=== PATIENT | female | born 1975 | race American Indian/Alaskan Native ===

== ENCOUNTER 2017-12-29 10:00 | Emergency (ER) | payer MEDICAID ==
[2017-12-29 10:43] VITALS: BMI 22.8
--- NOTE | 2017-12-29 11:30 | ED PDOC ---
Upper Extremity Pain/Injury Time Seen by Provider: 12/29/17 10:00 Chief Complaint (Nursing): Upper Extremity Problem/Injury Chief Complaint (Provider): Upper Extremity Problem/Injury History Per: Patient History/Exam Limitations: no limitations Onset/Duration Of Symptoms: Days (x2 weeks) Additional Complaint(s): Aayka Sam is a 42 y/o female with no significant past medical history who presents to the ED with complaints of right hand pain, onset x2 weeks. Patient states that she noticed a knot on the dorsum of her right hand, it gradually began to swell and hurt more and more. She visited a nearby clinic where they did US and x-ray but the pain became too severe prompting ED visit. She denies any other medical problems. PMD: Henri Hauser Past Medical History Reviewed: Historical Data, Nursing Documentation, Vital Signs Vital Signs: Last Vital Signs Temp 98.1 F 12/29/17 10:47 Pulse 70 12/29/17 10:47 Resp 20 12/29/17 10:47 BP 112/74 12/29/17 10:47 Pulse Ox 98 12/29/17 10:47 - Medical History PMH: No Chronic Diseases - Surgical History Surgical History: No Surg Hx - Family History Family History: States: Unknown Family Hx - Home Medications Home Medications: Ambulatory Orders Medication Instructions Recorded Naproxen 500 mg PO Q12 #20 tab 09/13/14 Ibuprofen [Motrin] 600 mg PO Q6 PRN #20 tab 11/07/14 Cyclobenzaprine [Cyclobenzaprine 10 mg PO TID PRN #15 tab 04/25/16 HCl] Ibuprofen [Motrin] 600 mg PO Q6H PRN #20 tab 04/25/16 - Allergies Allergies/Adverse Reactions: Allergies Allergy/AdvReac Type Severity Reaction Status Date / Time No Known Allergies Allergy Verified 05/31/16 16:02 Review of Systems ROS Statement: Except As Marked, All Systems Reviewed And Found Negative Constitutional: Negative for: Fever Musculoskeletal: Positive for: Arm Pain (right hand dorsum) Physical Exam - Reviewed Nursing Documentation Reviewed: Yes Vital Signs Reviewed: Yes - Physical Exam Appears: Positive for: Non-toxic, No Acute Distress Head Exam: Positive for: ATRAUMATIC, NORMOCEPHALIC Skin: Positive for: Normal Color, Warm, Dry Eye Exam: Positive for: EOMI, Normal appearance, PERRL Respiratory: Negative for: Respiratory Distress Extremity: Positive for: Normal ROM (upper and lower; hand and wrist are limited dude to pain), Tenderness (right hand dorsum), Swelling (right hand dorsum), Other (Ganglion cyst to dorsum of right hand. Neurovascularly intact). Negative for: Deformity Neurologic/Psych: Positive for: Alert, Oriented. Negative for: Motor/Sensory Deficits - ECG O2 Sat by Pulse Oximetry: 98 (RA) Pulse Ox Interpretation: Normal Medical Decision Making Medical Decision Making: Time: 11:33 Initial Impression: Large ganglion cyst Initial Plan: --RAD - right hand x3 views --Tylenol 650 mg PO --reevaluation xray appears negative for fracture or dislocation on my view, splint applied for comfort. instructed to follow up with ortho hand Dr Fine. Scribe Attestation: Documented Roberto Ronaldo acting as a scribe for Ronnie Ahmadi MD. Scribe Attestation: All medical record entries made by the Scribe were at my direction and personally dictated by me. I have reviewed the chart and agree that the record accurately reflects my personal performance of the history, physical exam, medical decision making, and the department course for this patient. I have also personally directed, reviewed, and agree with the discharge instructions and disposition. Disposition - Clinical Impression Clinical Impression: Hand pain - Patient ED Disposition Is Patient to be Admitted: No Counseled Patient/Family Regarding: Studies Performed, Diagnosis, Need For Followup - Disposition Referrals: [facility] [Outside] Jovi Fine MD [Medical Doctor] - Disposition: Routine/Home Disposition Time: 12:30 Condition: IMPROVED Additional Instructions: follow up with the hand mgmt specialist in 1-2 days return to the ED with any worsening or concerning symptoms Instructions: Hand Pain (DC) Forms: [employer] (Yi)
[2017-12-29 14:32] VITALS: BP 122/67; PULSE 76; RESP 17; TEMP 98
[2017-12-29 14:34] VITALS: O2SAT 98
--- NOTE | 2017-12-29 14:44 | RAD ---
PROCEDURE: Right Hand Radiographs. HISTORY: r hand pain COMPARISON: None. FINDINGS: BONES: Normal. No fracture. JOINTS: Normal. No osteoarthritic changes. SOFT TISSUES: Normal. OTHER FINDINGS: None. IMPRESSION: Normal right hand radiographs.
== END 2017-12-29 14:30 | disposition home or self-care (01) ==
LOC: H.ER 10:32
DX: M79.641 Pain in right hand (principal)

== ENCOUNTER 2018-10-11 09:30 | Emergency (ER) | payer MEDICAID ==
[2018-10-11 09:40] VITALS: BMI 20.5
--- NOTE | 2018-10-11 10:03 | ED PDOC ---
HPI: Female Pain Time Seen by Provider: 10/11/18 09:38 History Per: Patient Onset/Duration Of Symptoms: Days (3) Current Symptoms Are (Timing): Still Present Severity: Moderate Quality Of Discomfort: Cramping Additional Complaint(s): Vaginal bleeding assoc with clots x 3 days. Has irregular periods. Mild cramping. Seen by learning consultant and advised to go on BCP to regulate periods Abnormal Vaginal Bleeding: Yes Last Menstral Period: 13 days ago Past Medical History Vital Signs: Last Vital Signs Temp 98.5 F 10/11/18 09:37 Pulse 88 10/11/18 09:37 Resp 17 10/11/18 09:37 BP 99/60 L 10/11/18 09:37 Pulse Ox 97 10/11/18 09:37 - Medical History PMH: No Chronic Diseases - Family History Family History: States: Unknown Family Hx - Home Medications Home Medications: Ambulatory Orders Medication Instructions Recorded Naproxen 500 mg PO Q12 #20 tab 09/13/14 Ibuprofen [Motrin] 600 mg PO Q6 PRN #20 tab 11/07/14 Cyclobenzaprine [Cyclobenzaprine 10 mg PO TID PRN #15 tab 04/25/16 HCl] Ibuprofen [Motrin] 600 mg PO Q6H PRN #20 tab 04/25/16 Ferrous Sulfate [Feosol] 325 mg PO DAILY #30 tab 10/11/18 - Allergies Allergies/Adverse Reactions: Allergies Allergy/AdvReac Type Severity Reaction Status Date / Time No Known Allergies Allergy Verified 05/31/16 16:02 Review of Systems Gastrointestinal: Positive for: Abdominal Pain Genitourinary Female: Positive for: Vaginal Bleeding Neurological: Positive for: Dizziness Physical Exam - Physical Exam Appears: Positive for: Non-toxic, No Acute Distress Skin: Positive for: Normal Color, Warm, DRY Gastrointestinal/Abdominal: Positive for: Bowel Sounds, Soft. Negative for: Tenderness Pelvic Exam: Positive for: External Exam Normal, Blood (Mod blood and clots in vault). Negative for: Mass, Tender Adnexa, Tender Uterus - Laboratory Results Result Diagrams: 10/11/18 10:15 10/11/18 10:15 - ECG O2 Sat by Pulse Oximetry: 97 Disposition - Clinical Impression Clinical Impression: Menorrhagia - Patient ED Disposition Is Patient to be Admitted: No Counseled Patient/Family Regarding: Studies Performed, Diagnosis, Need For Followup, Rx Given - Disposition [facility]errals[facility]] Disposition: Routine/Home Disposition Time: 11:53 Condition: FAIR Prescriptions: Ferrous Sulfate [Feosol] 325 mg PO DAILY #30 tab Instructions: Heavy Periods Forms: [facility] ED School/Work Excuse
[2018-10-11 10:28] LABS: BASO % 0.2 % (0.0-2.0); EOS # 0.1 K/uL (0.0-0.7); EOS % 0.9 % (0.0-4.0); HEMOGLOBIN 9.4 g/dL (12.0-16.0); LYMPH # 1.7 K/uL (1.0-4.3); LYMPH % 24.4 % (20.0-40.0); MEAN CELL VOLUME 78.4 fl (81.0-99.0); MEAN CORPUSCULAR HGB CONC 33.2 g/dL (33.0-37.0); MEAN PLATELET VOLUME 8.5 fl (7.2-11.7); MONO # 0.4 K/uL (0.0-0.8); NEUT # 4.9 K/uL (1.8-7.0); NEUT % 69.5 % (50.0-75.0); RBC 3.6 Mil/uL (3.80-5.20); RED CELL DISTRIBUTION WIDTH 15.1 % (11.5-14.5)
[2018-10-11 10:36] LABS: ALB/GLOB RATIO 1.3 (1.0-2.1); ALBUMIN 4.2 g/dL (3.5-5.0); AST/SGOT 30 U/L (14-36); BLOOD UREA NITROGEN 13 mg/dl (7-17); CALCIUM 9.2 mg/dL (8.4-10.2); GFR NON-AFRICAN AMERICAN > 60
[2018-10-11 10:37] LABS: ALT/SGPT 26 U/L (9-52)
--- NOTE | 2018-10-11 11:33 | US ---
Date of service: 10/11/2018 HISTORY: Vag bleeding COMPARISON: None available. TECHNIQUE: Transvaginal FINDINGS: UTERUS: Measures 8.3 x 5.8 x 4.3 cm. Anteverted. No myometrial masses appreciated. There is abnormal appearance to the endometrial/intrauterine cavity please see below ENDOMETRIUM: The anterior and posterior endometrial thickness is combined measure approximately 8 mm. This is within normal limits. . Flank by the endometrium within the intrauterine cavity there is a nearly anechoic focus inferred as liquified blood or mucus given the history of patient's current and continuous ongoing bleeding since 10/03/2018. No typical echogenic polyp here is seen. However a small polyp with contiguous bleeding cannot be excluded. This nearly anechoic probable fluid like collection within the intrauterine cavity at the fundal level measures 12 x 4 mm Inferior to this nearly anechoic fundal level fluid like collection within the uterine cavity, probably at the upper uterine segment, there is more echogenic material which likely represents more echogenic blood filled nearly filling the endometrial cavity or possibly an endometrial polyp. No vascularity to this more echogenic area is seen. A submucosal fibroid is believed less likely. This echogenic component measures 2.0 x 4.6 cm sagittal images. CERVIX: A sub cm nabothian cyst is incidentally noted. RIGHT OVARY: Measures 3.7 x 2.7 x 1.9 cm. No solid mass. Normal flow. LEFT OVARY: Measures 3.1 x 2.7 x 1.3 cm. No solid mass. Normal flow. FREE FLUID: No significant free fluid noted. OTHER FINDINGS: None. IMPRESSION: There is both nearly anechoic and more echogenic material within the intrauterine cavity flanked by a non thickened endometrium. The nearly anechoic component may represent liquified blood or mucus. The more echogenic component may represent or echogenic blood/clot and or endometrial flat polyp. Here no vascularity appreciated. Electrical Automation Engineer consultation/follow-up recommended.
[2018-10-11 12:11] VITALS: BP 112/60; PULSE 67; RESP 16; TEMP 98; O2SAT 100
== END 2018-10-11 12:09 | disposition home or self-care (01) ==
LOC: H.ER 09:30
DX: N92.0 Excessive and frequent menstruation with regular cycle (principal)